=== PATIENT | female | born 1985 | race Caucasian/White ===

== ENCOUNTER 2016-09-16 18:54 | Emergency (ER) | payer OTHER ==
[~2016-09-16] VITALS: Ht 165.1 cm; Wt 65.8 kg
[~2016-09-16 18:54] MED LIST: TOPI100T11 PO
[2016-09-16 19:05] VITALS: BP 115/85; PULSE 114; RESP 18; TEMP 98.2; O2SAT 100
--- NOTE | 2016-09-16 19:05 | NUR ---
Placed in room 7 . Placed on cafeteria monitor, blood pressure machine and pulse oximeter. To gown for exam. Side rails up. Report given to Kasey CHAVIRA.
--- NOTE | 2016-09-16 19:15 | NUR ---
pt in bed 7 with multiple c/o chest discomfort, and leg pain. Dr Serra aware.
--- NOTE | 2016-09-16 19:49 | NUR ---
ER at bedside examining patient.
[2016-09-16 20:00] LABS: BILIRUBIN,URINE NEGATIVE (NEGATIVE); BLOOD, URINE NEGATIVE (NEGATIVE); CLARITY/URINE CLEAR (CLEAR); COLOR,URINE YELLOW (YELLOW); GLUCOSE,URINE NEGATIVE (NEGATIVE); KETONES,URINE NEGATIVE (NEGATIVE); LEUKOCYTE ESTERASE ,URINE NEGATIVE (NEGATIVE); NITRITE, URINE NEGATIVE (NEGATIVE); PROTEIN URINE NEGATIVE (NEGATIVE); UROBILINOGEN,URINE 0.2 (0.2-1.0)
[2016-09-16] MEDS ORDERED: NACL 0.9% 1,000 ML IV ONE (20:00)
--- NOTE | 2016-09-16 20:10 | NUR ---
# 22 gauge angiocath placed to LAC. Use of asceptic technique. Opsite placed over site. Blood return noted. Blood for lab drawn from site. Flushed with 10 cc of normal saline. No evidence of infiltration noted. Patient tolerated well.
[2016-09-16 20:17] LABS: BASOPHILS % (AUTO) 0.5 % (0.0-2.0); EOSINOPHILS % (AUTO) 0.7 % (0.0-4.0); HEMATOCRIT 27.2 % (36-48); HEMOGLOBIN 8.4 g/dL (12.0-16.0); LYMPHOCYTES # (AUTO) 1.8 K/uL (1.0-5.5); LYMPHOCYTES % (AUTO) 28.6 % (20.5-51.5); MEAN CORPUSCULAR HEMOGLOBIN 23 pg (27-31); MEAN CORPUSCULAR HGB CONC 31 % (32-36); MEAN CORPUSCULAR VOLUME 75 fL (79.0-98.0); MONOCYTES # (AUTO) 0.2 K/uL (0.0-1.0); MONOCYTES % (AUTO) 3.5 % (1.7-9.3); NEUTROPHILS # (AUTO) 4.3 K/uL (1.8-7.7); NEUTROPHILS % (AUTO) 66.7 % (40.0-70.0); PLATELET COUNT (AUTO) 209 K/uL (130-430); RED BLOOD CELL COUNT(AUTO) 3.62 MIL/uL (4.2-6.2); WHITE BLOOD COUNT (AUTO) 6.3 K/uL (4.8-10.8)
[2016-09-16 20:20] LABS: ANION GAP 7 (5-15); CALCIUM 8.6 mg/dL (8.4-11.0); CHLORIDE 105 mmol/L (98-107); CREATININE 0.66 mg/dL (0.55-1.30); GLUCOSE 76 mg/dL (70-99); POTASSIUM 4.1 mmol/L (3.5-5.1); SODIUM SERUM 141 mmol/L (136-145); UREA NITROGEN, BLOOD 8 mg/dL (8-21)
--- NOTE | 2016-09-16 20:23 | NUR ---
Ultrasound in progress at bedside.
[2016-09-16 20:25] LABS: GFR AFRICAN AMERICAN 135 mL/min (>90)
[2016-09-16 20:28] LABS: ALANINE AMINOTRANSFERASE 31 U/L (12-78); ALBUMIN 3.6 g/dL (3.4-4.8); ASPARTATE AMINOTRANSFERASE 18 U/L (10-37); TOTAL BILIRUBIN 0.1 mg/dL (0.0-1.0); TOTAL PROTEIN, SERUM 7.4 g/dL (6.4-8.3)
--- NOTE | 2016-09-16 21:18 | NUR ---
Patient resting quietly. No acute distress noted. Vital signs within normal range.
--- NOTE | 2016-09-16 22:30 | NUR ---
Pt sleeping vss. awaiting U/S results
--- NOTE | 2016-09-16 23:31 | NUR ---
ER at bedside examining patient.
[2016-09-16] MEDS ORDERED: OXYCODONE/ACETAMINOPHEN 5-325 TABLET PO ONE (23:45)
--- NOTE | 2016-09-16 23:55 | NUR ---
Patient given written and verbal discharge instructions and verbalizes understanding. ER MD discussed with patient the results and treatment provided. Given copies of tests performed in ER. Patient in stable condition. ID arm band removed. IV catheter removed intact and dressing applied, no active bleeding. Rx of flexeril given. Patient educated on pain management and to follow up with PMD. Pain Scale 0/10. Opportunity for questions provided and answered.
[2016-09-16 23:56] VITALS: BP 100/50; PULSE 80; RESP 18; TEMP 98.2; O2SAT 100
== END 2016-09-16 23:55 | disposition home or self-care (01) ==
LOC: SED 18:54
DX: M79.1 Myalgia (principal); F41.9 Anxiety disorder, unspecified; Z88.6 Allergy status to analgesic agent; Z88.5 Allergy status to narcotic agent; Z88.1 Allergy status to other antibiotic agents
CPT/HCPCS: 36415; 71010; 80053; 81003; 84484; 85025; 85379; 93005; 93971; 96360; 99285; J7030

== ENCOUNTER 2017-02-04 05:36 | Emergency (ER) | payer OTHER ==
[~2017-02-04] VITALS: Ht 165.1 cm; Wt 68.9 kg
[2017-02-04 05:40] VITALS: BP_SYST 132
[2017-02-04] MEDS ORDERED: KETOROLAC TROMETHAMINE 60 MG/2 ML VIAL IM ONE ×2 (06:30→06:33)
[2017-02-04] MEDS ORDERED: HYDROmorphone 1 MG INJ. 1 MG/ML AMPUL IM ONE (06:45)
[2017-02-04 08:11] VITALS: BP_SYST 122
== END 2017-02-04 08:10 | disposition home or self-care (01) ==
LOC: SED 05:36
DX: S09.90XA Unspecified injury of head, initial encounter (principal); Z88.5 Allergy status to narcotic agent; Z88.1 Allergy status to other antibiotic agents; W22.8XXA Striking against or struck by other objects, initial encounter; Y93.01 Activity, walking, marching and hiking; Y92.89 Other specified places as the place of occurrence of the external cause; Y99.8 Other external cause status
CPT/HCPCS: 70260; 81025; 96372; 99284; J1170; J1885

== ENCOUNTER 2017-04-21 15:10 | Emergency (ER) | payer OTHER ==
[~2017-04-21] VITALS: Ht 165.1 cm; Wt 70.3 kg
[2017-04-21 15:10] VITALS: BP 139/84; PULSE 122; RESP 19; TEMP 98.2; O2SAT 98
--- NOTE | 2017-04-21 15:10 | NUR ---
BROUGHT BACK TO BED #1 AND TRIAGED. REPORT GIVEN TO SPARKLE
--- NOTE | 2017-04-21 15:10 | NUR ---
Pt report received from FAN Merrill. Pt c/o C/P with rapid heart rate and nausea since 02:30 this AM. Pt localizes C/P to Left Chest, non-radiating. HR 113. Dr. Ragsdale made aware.
--- NOTE | 2017-04-21 15:15 | NUR ---
Dr. Ragsdale at bedside to assess pt.
--- NOTE | 2017-04-21 15:40 | NUR ---
# 20 gauge angiocath placed to RAC. Use of asceptic technique. Opsite placed over site. Blood return noted. Blood for lab drawn from site. Flushed with 10 cc of normal saline. No evidence of infiltration noted. Patient tolerated well.
[2017-04-21] MEDS ORDERED: NACL 0.9% 1,000 ML IV ONE (15:45)
[2017-04-21] MEDS ORDERED: fentaNYL CITRATE/PF 100 MCG/2 ML AMP IVP ONE (15:45)
[2017-04-21] MEDS ORDERED: PROCHLORPERAZINE EDISYLATE 10 MG/2 ML VIAL IVP ONE (15:45)
[2017-04-21] MEDS ORDERED: DIPHENHYDRAMINE INJ 50 MG/ML VIAL IVP ONE (15:45)
[2017-04-21] MEDS ORDERED: DIPHENOXYLATE HCL/ATROP SULF 2.5 MG TAB PO ONE (16:00)
[2017-04-21 16:05] LABS: BASOPHILS % (AUTO) 0.3 % (0.0-2.0); EOSINOPHILS % (AUTO) 0.2 % (0.0-4.0); HEMATOCRIT 32.8 % (36-48); HEMOGLOBIN 10.1 g/dL (12.0-16.0); LYMPHOCYTES # (AUTO) 1.9 K/uL (1.0-5.5); LYMPHOCYTES % (AUTO) 17.8 % (20.5-51.5); MEAN CORPUSCULAR HEMOGLOBIN 22 pg (27-31); MEAN CORPUSCULAR HGB CONC 31 % (32-36); MEAN CORPUSCULAR VOLUME 73 fL (79.0-98.0); MONOCYTES # (AUTO) 0.6 K/uL (0.0-1.0); MONOCYTES % (AUTO) 5.1 % (1.7-9.3); NEUTROPHILS # (AUTO) 8.4 K/uL (1.8-7.7); NEUTROPHILS % (AUTO) 76.6 % (40.0-70.0); RED BLOOD CELL COUNT(AUTO) 4.51 MIL/uL (4.2-6.2); RED CELL DISTRIBUTION WIDTH 19.9 % (9.0-15.0); WHITE BLOOD COUNT (AUTO) 10.9 K/uL (4.8-10.8)
[2017-04-21 16:08] LABS: CALCIUM 9.3 mg/dL (8.4-11.0); CREATININE 0.94 mg/dL (0.55-1.30); POTASSIUM 4.3 mmol/L (3.5-5.1)
[2017-04-21 16:13] LABS: ALBUMIN 3.8 g/dL (3.4-4.8)
[2017-04-21 16:19] LABS: PLATELET COUNT (AUTO) 771 K/uL (130-430)
--- NOTE | 2017-04-21 16:30 | NUR ---
Pt verbalizes improvement in C/P from 02/24 to 08/27. No further c/o N/V.
[2017-04-21 17:36] VITALS: BP 132/84; PULSE 110; RESP 20; TEMP 98.6; O2SAT 98
--- NOTE | 2017-04-21 17:36 | NUR ---
Patient given written and verbal discharge instructions and verbalizes understanding. ER MD discussed with patient the results and treatment provided. Patient in stable condition. ID arm band removed. IV catheter removed intact and dressing applied, no active bleeding. Rx of Bactrim DS, Lomotil, Zofran given. Patient educated on pain management and to follow up with PMD. Pain Scale 2/10. Opportunity for questions provided and answered.
== END 2017-04-21 17:36 | disposition home or self-care (01) ==
LOC: SED 15:10
DX: K52.9 Noninfective gastroenteritis and colitis, unspecified (principal); E87.1 Hypo-osmolality and hyponatremia; E86.0 Dehydration; Z88.6 Allergy status to analgesic agent; Z88.5 Allergy status to narcotic agent; Z88.1 Allergy status to other antibiotic agents
CPT/HCPCS: 36415; 71010; 80053; 84484; 85025; 93005; 96361; 96374; 96375; 99285; J0780; J1200; J3010; J7030

== ENCOUNTER 2017-05-14 21:08 | Inpatient (IN) | payer OTHER ==
[~2017-05-14] VITALS: Ht 165.1 cm; Wt 67.1 kg
[2017-05-14 21:15] VITALS: BP_SYST 127
[2017-05-14] MEDS ORDERED: NACL 0.9% 1,000 ML IV ONE (21:30)
[2017-05-14 21:55] LABS: LYMPHOCYTES # (AUTO) 0.7 K/uL (1.0-5.5); MONOCYTES # (AUTO) 0.1 K/uL (0.0-1.0)
[2017-05-14 21:58] LABS: BASOPHILS % (AUTO) 1.1 % (0.0-2.0); HEMATOCRIT 27.4 % (36-48); HEMOGLOBIN 8.5 g/dL (12.0-16.0); LYMPHOCYTES % (AUTO) 21.8 % (20.5-51.5); MEAN CORPUSCULAR HEMOGLOBIN 23 pg (27-31); MEAN CORPUSCULAR HGB CONC 31 % (32-36); MEAN CORPUSCULAR VOLUME 73 fL (79.0-98.0); MONOCYTES % (AUTO) 3.6 % (1.7-9.3); NEUTROPHILS # (AUTO) 2.5 K/uL (1.8-7.7); NEUTROPHILS % (AUTO) 72.5 % (40.0-70.0); PLATELET COUNT (AUTO) 386 K/uL (130-430); RED BLOOD CELL COUNT(AUTO) 3.76 MIL/uL (4.2-6.2); RED CELL DISTRIBUTION WIDTH 20.8 % (9.0-15.0); WHITE BLOOD COUNT (AUTO) 3.3 K/uL (4.8-10.8)
[2017-05-14 22:25] LABS: BARBITURATE, URINE NEGATIVE (NEG <=200); BENZODIAZEPINE, URINE NEGATIVE (NEG <=150); CANNABINOID, URINE NEGATIVE (NEG <=50); COCAINE, URINE NEGATIVE (NEG <=150); METHAMPHETAMINES SCREEN,URINE NEGATIVE (NEG <=500); OPIATE, URINE POSITIVE (NEG <=100); PHENCYCLIDINE SCREEN,URINE NEGATIVE (NEG <=25); UR TRICYCLIC ANTIDEPRESSANTS NEGATIVE (NEG <=300); URINE AMPHETAMINE NEGATIVE (NEG <=500); URINE METHADONE NEGATIVE (NEG <=200); URINE OXYCODONE SCREEN POSITIVE (NEG <=100); URINE PROPOXYPHENE SCREEN NEGATIVE (NEG <=300)
[2017-05-14 23:14] LABS: ALBUMIN 2.7 g/dL (3.4-4.8); ANION GAP 10 (5-15); CALCIUM 8.9 mg/dL (8.4-11.0); CHLORIDE 106 mmol/L (98-107); CREATININE 0.58 mg/dL (0.55-1.30); GLUCOSE 88 mg/dL (70-99); POTASSIUM 3.9 mmol/L (3.5-5.1); SODIUM SERUM 141 mmol/L (136-145); TOTAL BILIRUBIN 0.9 mg/dL (0.0-1.0)
[2017-05-14 23:18] LABS: ACETAMINOPHEN 15 ug/mL (1-30)
[2017-05-14 23:55] LABS: ALCOHOL, BLOOD < 3 mg/dL (<10); GFR AFRICAN AMERICAN 156 mL/min (>90)
[2017-05-14 23:56] LABS: ALANINE AMINOTRANSFERASE 3660 U/L (12-78); ASPARTATE AMINOTRANSFERASE 4205 U/L (10-37); UREA NITROGEN, BLOOD 10 mg/dL (8-21)
[2017-05-15] VITALS (7 sets, daily range): BP systolic 97–118
[2017-05-15 00:24] LABS: BILIRUBIN,URINE 1+ (NEGATIVE); BLOOD, URINE NEGATIVE (NEGATIVE); CLARITY/URINE CLEAR (CLEAR); COLOR,URINE YELLOW (YELLOW); GLUCOSE,URINE NEGATIVE (NEGATIVE); KETONES,URINE TRACE (NEGATIVE); LEUKOCYTE ESTERASE ,URINE NEGATIVE (NEGATIVE); NITRITE, URINE NEGATIVE (NEGATIVE); PH,URINE 5.5 (5.0-8.0); PROTEIN URINE TRACE (NEGATIVE)
[2017-05-15] MEDS ORDERED: D5W IV ONE ×4 (00:45→14:30)
[2017-05-15] MEDS ORDERED: ACETYLCYSTEINE IV ONE ×4 (00:45→14:30)
[2017-05-15 00:59] LABS: RBC,URINE 0-3 /HPF (0-3); WBC,URINE 0-3 /HPF (0-3)
[2017-05-15 01:00] LABS: BACTERIA,URINE MODERATE /HPF (None Seen); URINE AMORPHOUS URATE 4+ /HPF (None Seen)
[2017-05-15] MEDS ORDERED: QUET200T5 PO (01:11)
[2017-05-15] MEDS ORDERED: MULT-1117 (01:11)
[2017-05-15] MEDS ORDERED: CYM30 PO (01:11)
[2017-05-15] MEDS ORDERED: ONDA8TAB6 PO (01:11)
[2017-05-15] MEDS ORDERED: GABA-529 PO (01:11)
[2017-05-15] MEDS ORDERED: NS 500 ML IV ONE (01:15)
[2017-05-15 01:29] LABS: TOTAL IRON BIND. CAPACITY 311 ug/dL (250-450)
[2017-05-15] MEDS ORDERED: ACETYLCYSTEINE IV 6000 MG/30 ML VIAL IV ONE (01:38)
[2017-05-15] MEDS ORDERED: COMMUNICATION ORDER XX ONE (09:00)
[2017-05-15 09:17] LABS: ALBUMIN 2.4 g/dL (3.4-4.8); CALCIUM 7.9 mg/dL (8.4-11.0); CREATININE 0.47 mg/dL (0.55-1.30); POTASSIUM 3.5 mmol/L (3.5-5.1); TOTAL BILIRUBIN 0.7 mg/dL (0.0-1.0)
[2017-05-15 09:32] LABS: INR 1.2 (0.8-1.2); PROTHROMBIN TIME 12.3 SECS (9.5-12.5)
[2017-05-15] MEDS ORDERED: ONDANSETRON HCL 4 MG/2 ML VIAL IVP PRN (17:15)
[2017-05-15] MEDS: D5/0.45 NS 1,000 ML IV SCH (19:25)
[2017-05-15] MEDS ORDERED: PANTOPRAZOLE GRANULES PACKET 40 MG GT SCH (19:30)
[2017-05-15] MEDS: METOCLOPRAMIDE HCL 10 MG/2 ML VIAL IVP PRN (22:15)
[2017-05-15] MEDS ORDERED: PANTOPRAZOLE SODIUM 40 MG/VIAL (PROTONIX) IVP SCH (22:15)
[2017-05-15] MEDS: PANTOPRAZOLE SODIUM 40 MG/VIAL (PROTONIX) IVP SCH (22:21)
[2017-05-16 00:24] VITALS: BP_SYST 116
[2017-05-16] MEDS: D5/0.45 NS 1,000 ML IV SCH (03:50)
[2017-05-16 04:45] VITALS: BP_SYST 120
[2017-05-16] MEDS: METOCLOPRAMIDE HCL 10 MG/2 ML VIAL IVP PRN ×3 (07:07→20:43)
[2017-05-16 07:13] LABS: INR 1.1 (0.8-1.2); PROTHROMBIN TIME 11.1 SECS (9.5-12.5)
[2017-05-16 07:18] LABS: ALBUMIN 2.2 g/dL (3.4-4.8); BILIRUBIN,DIRECT 0.2 mg/dL (0.0-0.3); CALCIUM 7.2 mg/dL (8.4-11.0); CREATININE 0.42 mg/dL (0.55-1.30); TOTAL BILIRUBIN 0.4 mg/dL (0.0-1.0)
[2017-05-16 07:31] LABS: POTASSIUM 2.9 mmol/L (3.5-5.1)
[2017-05-16 07:51] LABS: HEMATOCRIT 24.1 % (36-48); HEMOGLOBIN 7.1 g/dL (12.0-16.0); MEAN CORPUSCULAR HEMOGLOBIN 22 pg (27-31); MEAN CORPUSCULAR HGB CONC 30 % (32-36); MEAN CORPUSCULAR VOLUME 73 fL (79.0-98.0); PLATELET COUNT (AUTO) 364 K/uL (130-430); RED BLOOD CELL COUNT(AUTO) 3.29 MIL/uL (4.2-6.2); RED CELL DISTRIBUTION WIDTH 20.7 % (9.0-15.0)
[2017-05-16 07:57] LABS: WHITE BLOOD COUNT (AUTO) 1.6 K/uL (4.8-10.8)
[2017-05-16 08:21] VITALS: BP_SYST 121
[2017-05-16] MEDS ORDERED: PANTOPRAZOLE GRANULES PACKET 40 MG PO SCH (09:00)
[2017-05-16] MEDS: PANTOPRAZOLE SODIUM 40 MG/VIAL (PROTONIX) IVP SCH (09:05)
[2017-05-16 10:27] LABS: BASOPHILS % (MANUAL) 0 % (0-2); EOSINOPHILS % (MANUAL) 1 % (0-7); LYMPHOCYTES % (MANUAL) 59 % (20-46); MONOCYTES % (MANUAL) 8 % (0-11)
[2017-05-16] MEDS: POTASSIUM CHLORIDE 20 MEQ/PKT PACKET PO SCH ×2 (10:27→14:54)
[2017-05-16 12:00] VITALS: BP_SYST 107
[2017-05-16] MEDS ORDERED: HYDROmorphone 1 MG INJ. 1 MG/ML AMPUL IVP PRN (13:30)
[2017-05-16] MEDS: HYDROmorphone 2 MG/ML VIAL IVP PRN ×3 (14:54→23:14)
[2017-05-16 15:39] VITALS: BP_SYST 114
[2017-05-16 17:46] LABS: POTASSIUM 3.8 mmol/L (3.5-5.1)
[2017-05-16 20:00] VITALS: BP_SYST 103
[2017-05-17] VITALS (7 sets, daily range): BP systolic 105–120
[2017-05-17] MEDS: HYDROmorphone 2 MG/ML VIAL IVP PRN ×5 (04:17→21:46)
[2017-05-17] MEDS: METOCLOPRAMIDE HCL 10 MG/2 ML VIAL IVP PRN ×3 (04:18→20:31)
[2017-05-17 06:27] LABS: PROTHROMBIN TIME 10.1 SECS (9.5-12.5)
[2017-05-17 06:33] LABS: HEMATOCRIT 22.4 % (36-48); MEAN CORPUSCULAR HEMOGLOBIN 22 pg (27-31); MEAN CORPUSCULAR HGB CONC 30 % (32-36); MEAN CORPUSCULAR VOLUME 74 fL (79.0-98.0); PLATELET COUNT (AUTO) 295 K/uL (130-430); RED BLOOD CELL COUNT(AUTO) 3.03 MIL/uL (4.2-6.2); RED CELL DISTRIBUTION WIDTH 21.1 % (9.0-15.0)
[2017-05-17 06:49] LABS: ALBUMIN 2.7 g/dL (3.4-4.8); CALCIUM 7.6 mg/dL (8.4-11.0); CREATININE 0.33 mg/dL (0.55-1.30); POTASSIUM 3.6 mmol/L (3.5-5.1); THYROID STIMULATING HORMONE 1.33 uIu/mL (0.34-4.82); TOTAL BILIRUBIN 0.5 mg/dL (0.0-1.0)
[2017-05-17 07:26] LABS: HEMOGLOBIN 6.8 g/dL (12.0-16.0); WHITE BLOOD COUNT (AUTO) 1.9 K/uL (4.8-10.8)
[2017-05-17 08:25] LABS: BAND % (MANUAL) 2 % (0-6)
[2017-05-17 08:26] LABS: BASOPHILS % (MANUAL) 0 % (0-2); EOSINOPHILS % (MANUAL) 0 % (0-7); LYMPHOCYTES % (MANUAL) 87 % (20-46); MONOCYTES % (MANUAL) 4 % (0-11)
[2017-05-17] MEDS: PANTOPRAZOLE SODIUM 40 MG/VIAL (PROTONIX) IVP SCH (08:46)
[2017-05-17] MEDS: D5/0.45 NS 1,000 ML IV SCH ×2 (08:47→23:57)
[2017-05-18] MEDS ORDERED: BENZOCAINE/MENTHOL 1 EACH LOZENGE MM ONE
[2017-05-18] MEDS ORDERED: DOCUSATE SODIUM 250 MG CAPSULE PO ONE
[2017-05-18 00:14] VITALS: BP_SYST 117
[2017-05-18] MEDS: HYDROmorphone 2 MG/ML VIAL IVP PRN ×4 (01:46→14:46)
[2017-05-18 04:00] VITALS: BP_SYST 118
[2017-05-18] MEDS: METOCLOPRAMIDE HCL 10 MG/2 ML VIAL IVP PRN ×2 (05:14→12:01)
[2017-05-18 08:00] VITALS: BP_SYST 109
[2017-05-18] MEDS ORDERED: POLYETHYLENE GLYCOL 3350, 17 GM/ POWD.PACK PO SCH (09:00)
[2017-05-18] MEDS ORDERED: PANTOPRAZOLE SODIUM 40 MG/VIAL (PROTONIX) ONE (09:07)
[2017-05-18] MEDS: PANTOPRAZOLE SODIUM 40 MG/VIAL (PROTONIX) IVP SCH (09:16)
[2017-05-18 10:58] LABS: HEMATOCRIT 27.5 % (36-48); HEMOGLOBIN 8.2 g/dL (12.0-16.0); MEAN CORPUSCULAR HEMOGLOBIN 23 pg (27-31); MEAN CORPUSCULAR HGB CONC 30 % (32-36); MEAN CORPUSCULAR VOLUME 78 fL (79.0-98.0); PLATELET COUNT (AUTO) 288 K/uL (130-430); RED BLOOD CELL COUNT(AUTO) 3.53 MIL/uL (4.2-6.2); RED CELL DISTRIBUTION WIDTH 21.6 % (9.0-15.0); WHITE BLOOD COUNT (AUTO) 2.9 K/uL (4.8-10.8)
[2017-05-18 11:20] LABS: ALBUMIN 2.9 g/dL (3.4-4.8); CALCIUM 7.8 mg/dL (8.4-11.0); CREATININE 0.32 mg/dL (0.55-1.30); POTASSIUM 4.3 mmol/L (3.5-5.1); TOTAL BILIRUBIN 0.6 mg/dL (0.0-1.0)
[2017-05-18 11:32] LABS: BASOPHILS % (MANUAL) 0 % (0-2); EOSINOPHILS % (MANUAL) 3 % (0-7); LYMPHOCYTES % (MANUAL) 41 % (20-46); MONOCYTES % (MANUAL) 5 % (0-11)
[2017-05-18 14:46] LABS: FOLATE (FOLIC ACID) 12.8 ng/mL (>3.0)
[2017-05-18 15:51] VITALS: BP_SYST 108
== END 2017-05-18 16:35 | disposition psychiatric hospital, planned readmission (93) | DRG 918 ==
LOC: SED 21:08 → STU 05-15 01:11 → SMU 05-18 10:04
PROVIDERS: ADMIT Internal Medicine Hospice and Palliative Medicine; ATTEND Internal Medicine Hospice and Palliative Medicine
PROC: 30233N1 Transfusion of Nonautologous Red Blood Cells into Peripheral Vein, Percutaneous Approach (ICD-10-PCS; principal; 2017-05-17)
DX: T39.1X2A Poisoning by 4-Aminophenol derivatives, intentional self-harm, initial encounter (principal); D64.9 Anemia, unspecified; F32.9 Major depressive disorder, single episode, unspecified; F41.9 Anxiety disorder, unspecified; F42.9 Obsessive-compulsive disorder, unspecified; G40.909 Epilepsy, unspecified, not intractable, without status epilepticus; F10.10 Alcohol abuse, uncomplicated; Z81.8 Family history of other mental and behavioral disorders; Z98.84 Bariatric surgery status; Z88.6 Allergy status to analgesic agent; Y92.89 Other specified places as the place of occurrence of the external cause; Z88.1 Allergy status to other antibiotic agents; Z88.8 Allergy status to other drugs, medicaments and biological substances
CPT/HCPCS: 36415; 71010; 76700-TC; 80053; 80076; 80307; 81000-TC; 81025; 82272; 82607; 82728; 82746; 83540-TC; 83550-TC; 83615-TC; 83735-TC; 84132-TC; 84443-TC; 85007; 85025; 85027; 85610-TC; 86886; 86900; 86901; 86920; 93005; 96365; 99285; C9113; G0480; G0481; G0482; J0132; J1170; J2405; J2765; J7030; J7050; J7060; P9021

== ENCOUNTER 2021-05-11 10:20 | Emergency (ER) | payer OTHER ==
[~2021-05-11] VITALS: Ht 165.1 cm; Wt 67.6 kg
[~2021-05-11 10:20] MED LIST changes: +CYM30 PO; +GABA-529 PO; +MULT-1117; +ONDA8TAB6 PO; +QUET200T5 PO
[2021-05-11 10:48] VITALS: BP_SYST 122
[2021-05-11] MEDS ORDERED: MORPHINE 4 MG INJ. 4 MG/ML VIAL IVP ONE (12:00)
[2021-05-11 12:11] LABS: BASOPHILS % (AUTO) 0.7 % (0.0-2.0); EOSINOPHILS % (AUTO) 0.2 % (0.0-4.0); HEMATOCRIT 28.7 % (36-48); HEMOGLOBIN 8.7 g/dL (12.0-16.0); LYMPHOCYTES % (AUTO) 21.7 % (20.5-51.5); MEAN CORPUSCULAR HEMOGLOBIN 23 pg (27-31); MEAN CORPUSCULAR HGB CONC 30 % (32-36); MEAN CORPUSCULAR VOLUME 75 fL (79.0-98.0); MONOCYTES # (AUTO) 0.3 K/uL (0.0-1.0); MONOCYTES % (AUTO) 6.1 % (1.7-9.3); NEUTROPHILS # (AUTO) 3.3 K/uL (1.8-7.7); NEUTROPHILS % (AUTO) 71.3 % (40.0-70.0); PLATELET COUNT (AUTO) 260 K/uL (130-430); RED BLOOD CELL COUNT(AUTO) 3.82 MIL/uL (4.2-6.2); RED CELL DISTRIBUTION WIDTH 18.4 % (9.0-15.0); WHITE BLOOD COUNT (AUTO) 4.7 K/uL (4.8-10.8)
[2021-05-11 12:35] LABS: CALCIUM 9.2 mg/dL (8.4-11.0); CREATININE 0.61 mg/dL (0.55-1.30); POTASSIUM 3.7 mmol/L (3.5-5.1)
[2021-05-11 12:40] LABS: TOTAL BILIRUBIN 0.6 mg/dL (0.0-1.0)
[2021-05-11] MEDS ORDERED: HYDROmorphone 1 MG/ML INJ. CARTRIDGE IVP ONE (14:15)
[2021-05-11] MEDS ORDERED: OXYC-128 PO (14:43)
[2021-05-11 15:04] VITALS: BP_SYST 102
== END 2021-05-11 15:04 | disposition home or self-care (01) ==
LOC: SED 10:20
DX: M79.604 Pain in right leg (principal); R07.89 Other chest pain; Z88.1 Allergy status to other antibiotic agents; Z88.5 Allergy status to narcotic agent; Z88.6 Allergy status to analgesic agent; Z79.899 Other long term (current) drug therapy
CPT/HCPCS: 36415; 71045; 80053; 81025; 84484; 85025; 85379; 93005; 93971; 96374; 99285; J1170

== ENCOUNTER 2022-11-08 15:00 | Emergency (ER) | payer OTHER, MEDICAID ==
[~2022-11-08] VITALS: Ht 165.1 cm; Wt 72.6 kg
[~2022-11-08 15:00] MED LIST changes: +OXYC-128 PO
[2022-11-08 15:41] VITALS: BP_SYST 122
[2022-11-08] MEDS ORDERED: fentaNYL CITRATE/PF 100 MCG/2 ML AMP IM ONE (16:00)
[2022-11-08 17:04] LABS: BASOPHILS % (AUTO) 0.6 % (0.0-2.0); EOSINOPHILS % (AUTO) 1.1 % (0.0-4.0); HEMATOCRIT 24.1 % (36-48); HEMOGLOBIN 7.3 g/dL (12.0-16.0); LYMPHOCYTES # (AUTO) 0.7 K/uL (1.0-5.5); LYMPHOCYTES % (AUTO) 21.2 % (20.5-51.5); MEAN CORPUSCULAR HEMOGLOBIN 23 pg (27-31); MEAN CORPUSCULAR HGB CONC 30 % (32-36); MEAN CORPUSCULAR VOLUME 74 fL (79.0-98.0); MONOCYTES # (AUTO) 0.3 K/uL (0.0-1.0); MONOCYTES % (AUTO) 7.7 % (1.7-9.3); NEUTROPHILS # (AUTO) 2.3 K/uL (1.8-7.7); NEUTROPHILS % (AUTO) 69.4 % (40.0-70.0); PLATELET COUNT (AUTO) 203 K/uL (130-430); RED BLOOD CELL COUNT(AUTO) 3.24 MIL/uL (4.2-6.2); RED CELL DISTRIBUTION WIDTH 19.1 % (9.0-15.0); WHITE BLOOD COUNT (AUTO) 3.3 K/uL (4.8-10.8)
[2022-11-08 17:09] LABS: ERYTHROCYTE SEDIMENTATION RATE 41 MM/HR (0-20)
[2022-11-08 17:30] LABS: CALCIUM 8.4 mg/dL (8.4-11.0); CREATININE 0.8 mg/dL (0.55-1.30)
[2022-11-08 17:34] LABS: ALBUMIN 3.4 g/dL (3.4-4.8); C-REACTIVE PROTEIN QUANT 1.3 mg/dL (0-0.5); TOTAL BILIRUBIN 0.4 mg/dL (0.0-1.0); URIC ACID 3.3 mg/dL (2.4-7.0)
[2022-11-08] MEDS ORDERED: OXYC-128 PO (18:07)
== END 2022-11-08 18:48 | disposition home or self-care (01) ==
LOC: SED 15:00
DX: M25.561 Pain in right knee (principal); D53.9 Nutritional anemia, unspecified; Z79.899 Other long term (current) drug therapy; Z88.1 Allergy status to other antibiotic agents; Z88.5 Allergy status to narcotic agent; Z88.6 Allergy status to analgesic agent; Z91.041 Radiographic dye allergy status
CPT/HCPCS: 99285; 93971; 80053; 84550; 85025; 85651; 86140; 36415; 73564; 96372; J3010